=== PATIENT | male | born 1975 | race African-American/Black ===

== ENCOUNTER 2018-01-16 09:49 | Emergency (ER) | payer MEDICAID ==
[~2018-01-16] VITALS: Ht 180.3 cm; Wt 85.0 kg
[2018-01-16] MEDS ORDERED: SODIUM CHLORIDE 0.9% 1,000 ML IV ONE ×2 (10:51→10:56)
[2018-01-16 11:53] LABS: BASOPHILS % 0.5 % (0.0-2.0); EOSINOPHILS % 1.6 % (0.0-5.0); HEMATOCRIT. 46.7 % (42.0-52.0); HEMOGLOBIN. 16.9 g/dL (14.0-18.0); LYMPHOCYTES % 44.2 % (20.0-50.0); MEAN CORPUSCULAR HEMOGLOBIN 31.2 pg (28.0-32.0); MEAN CORPUSCULAR VOLUME 85.9 fL (80.0-94.0); MEAN PLATELET VOLUME 8.8 fl (7.4-10.4); MONOCYTES % 7.2 % (2.0-8.0); NEUTROPHILS % 46.5 % (40.0-76.0); PLATELET 119 x1000/uL (130-400); RED BLOOD CELL COUNT 5.44 mill/uL (4.7-6.1); RED CELL DISTRIBUTION WIDTH 13.3 % (11.6-14.6)
[2018-01-16 11:59] LABS: CHLORIDE 104 mEq/L (98-107)
[2018-01-16 12:00] LABS: INR 1.1; PROTHROMBIN TIME 11.1 sec (9.1-11.1)
[2018-01-16 12:10] LABS: CREATINE KINASE 350 IU/L (39-308)
[2018-01-16 12:29] LABS: *AMPHETAMINES SCREEN URINE NEGATIVE (NEGATIVE); *BARBITURATES SCREEN URINE NEGATIVE (NEGATIVE); *BENZODIAZEPINES SCREEN URINE NEGATIVE (NEGATIVE); *COCAINE SCREEN URINE NEGATIVE (NEGATIVE); METHADONE URINE SCREEN NEGATIVE (NEGATIVE)
[2018-01-16 12:30] LABS: CANNABINOID URINE SCREEN PRESUMTIVE POSITIVE (NEGATIVE); OPIATES URINE SCREEN NEGATIVE (NEGATIVE); PHENCYCLIDINE URINE SCREEN NEGATIVE (NEGATIVE)
[2018-01-16] MEDS ORDERED: IOHEXOL-350 100 ML BOTTLE ONE (14:13)
[2018-01-16] MEDS ORDERED: KETOROLAC 30MG/ML VIAL IV ONE (15:30)
[2018-01-16 17:09] VITALS: BP 122/75
== END 2018-01-16 17:12 | disposition home or self-care (01) ==
LOC: ER 10:22
DX: M54.2 Cervicalgia (principal); H53.8 Other visual disturbances; Z87.891 Personal history of nicotine dependence
CPT/HCPCS: 36415; 70496; 70498; 71045; 73140; 80053; 80305; 82550; 82962; 83690; 84484; 85025; 85610; 93005; 99285; J1885; J7030; Q9967; Z7610